=== PATIENT | female | born 1955 | race Caucasian/White ===

== ENCOUNTER 2023-07-30 18:47 | Outpatient (REF) | payer MEDICARE, BC, SELFPAY ==
[2023-07-30 20:59] LABS: HCT 29.9 % (36.0-46.0); HGB 9.6 g/dL (11.2-15.7); MCH 28.5 pg (27.0-33.0); MCHC 32.1 % (32.0-36.0); MCV 89 fL (80-95); MPV 10.5 fL (8.0-11.0); Platelet Count 273 10^3/uL (130-400); RBC 3.37 10^6/uL (3.93-5.22); RDW 12.6 % (11.7-14.6); RDW-SD 40.7 fL; WBC 3.47 10^3/uL (4.4-10.8)
[2023-07-30 22:32] LABS: ALT 16 U/L (14-59); AST 27 U/L (15-37); Albumin 3.6 g/dL (3.4-5.0); Alkaline Phosphatase 42 U/L (46-116); BUN 20 mg/dL (7-18); Bilirubin, Total 0.4 mg/dL (0.2-1.0); Calcium 9.4 mg/dL (8.5-10.1); Chloride 102 mmol/L (98-107); Estimated GFR 61.36 (mL/min/1.73m2); Glucose 105 mg/dL (74-106); Potassium 4.2 mmol/L (3.5-5.1); Sodium 138 mmol/L (136-145); TSH (W/Ref FT4) 2.63 uIU/mL (0.36-3.74)
[2023-07-30 23:10] LABS: Hemoglobin A1C 5.8 % (<5.7)
[2023-07-31 01:05] LABS: Calculated LDL 66 mg/dL (<100); Cholesterol 128 mg/dL (<200); HDL Cholesterol 49 mg/dL (40-60); Triglyceride 67 mg/dL (<150)
== END 2023-07-30 18:48 | disposition home or self-care (01) ==
LOC: NCHCN 18:47
PROVIDERS: Visit Provider Family Medicine
DX: E66.9 Obesity, unspecified (principal); E11.9 Type 2 diabetes mellitus without complications; D64.9 Anemia, unspecified; I10 Essential (primary) hypertension; E78.00 Pure hypercholesterolemia, unspecified; Z00.00 Encounter for general adult medical examination without abnormal findings; M79.18 Myalgia, other site; Z87.898 Personal history of other specified conditions
CPT/HCPCS: 80053; 80061; 85027; 83036; 84443

== ENCOUNTER 2024-06-21 12:44 | Outpatient (REF) | payer MEDICARE, BC, SELFPAY ==
[2024-06-21 14:56] LABS: Iron 91 ug/dL (50-170); Total Iron Binding Capacity 495 ug/dL (250-450); Transferrin Sat 18 % (15-50)
[2024-06-21 15:27] LABS: Ferritin 21 ng/mL (8-252); Vitamin B12 277 pg/mL (193-986)
[2024-06-21 15:29] LABS: Folate > 20.0 ng/mL (8.6-20.0)
== END 2024-06-21 12:45 | disposition home or self-care (01) ==
LOC: NCHCN 12:44
PROVIDERS: Visit Provider Physician Assistant
DX: D64.9 Anemia, unspecified (principal); R79.89 Other specified abnormal findings of blood chemistry
CPT/HCPCS: 82607; 82728; 82746; 83540; 83550

== ENCOUNTER 2024-06-29 16:20 | Outpatient (REF) | payer MEDICARE, BC, SELFPAY ==
[2024-06-29 22:53] LABS: Abs Immature Grans 0.02 10^3/uL (0.0-0.06); Absolute Basophil Count 0.04 10^3/uL (0.0-0.2); Absolute Eosinophil Count 0.08 10^3/uL (0.0-0.7); Absolute Monocyte Count 0.36 10^3/uL (0.1-0.8); Absolute Neutrophil Count 2.88 10^3/uL (1.2-6.7); Basophils % 0.9 %; Eosinophils % 1.8 %; HGB 10.1 g/dL (11.2-15.7); Immature Grans % 0.4 %; Lymphocytes % 24.6 %; MCHC 32.6 % (32.0-36.0); MCV 86 fL (80-95); MPV 10.8 fL (8.0-11.0); Neutrophils % 64.3 %; Platelet Count 273 10^3/uL (130-400); RBC 3.61 10^6/uL (3.93-5.22); RDW 12.7 % (11.7-14.6); RDW-SD 39.5 fL; WBC 4.48 10^3/uL (4.4-10.8)
== END 2024-06-29 16:21 | disposition home or self-care (01) ==
LOC: NCHCN 16:20
PROVIDERS: Visit Provider Family Medicine
DX: D64.9 Anemia, unspecified (principal)
CPT/HCPCS: 85025

== ENCOUNTER 2025-01-25 13:49 | Outpatient (REF) | payer MEDICARE, BC, SELFPAY ==
[2025-01-25 22:00] LABS: COMMENT (LAB VIEW ONLY) 90.49 mg/dL; Microalb ug/mg Crea 21.4 ug/mg Cr
== END 2025-01-25 13:50 | disposition home or self-care (01) ==
LOC: NCHCN 13:49
PROVIDERS: Visit Provider Family Medicine
DX: E11.9 Type 2 diabetes mellitus without complications (principal)
CPT/HCPCS: 82043; 82570

== ENCOUNTER 2025-07-18 17:56 | Outpatient (REF) | payer MEDICARE, BC, SELFPAY ==
[2025-07-18 21:35] LABS: HCT 35.0 % (36.0-46.0); HGB 11.1 g/dL (11.2-15.7); MCH 26.9 pg (27.0-33.0); MCHC 31.7 % (32.0-36.0); MCV 85 fL (80-95); MPV 10.6 fL (8.0-11.0); Platelet Count 291 10^3/uL (130-400); RBC 4.13 10^6/uL (3.93-5.22); RDW 13.4 % (11.7-14.6); RDW-SD 41.4 fL; WBC 4.54 10^3/uL (4.4-10.8)
== END 2025-07-18 17:57 | disposition home or self-care (01) ==
LOC: NCHCN 17:56
PROVIDERS: Visit Provider Family Medicine
DX: D64.9 Anemia, unspecified (principal)
CPT/HCPCS: 85027